=== PATIENT | male | born 1940 | race Caucasian/White ===

== ENCOUNTER → 2019-07-28 08:30 | Outpatient (CLI) | payer OTHER, SELFPAY ==
[2019-07-28 09:42] LABS: Add Manual Diff / Slide Review NO; Basophils Absolute Auto 0 /uL (0-100); Basophils Percent Auto 0.6 % (0-2); Eosinophils Absolute Auto 200 /uL (0-450); Eosinophils Percent Auto 4.7 % (2-4); Hematocrit 44.5 % (41-53); Hemoglobin 14.9 g/dL (13.5-17.5); Lymphocytes Absolute Auto 1600 /uL (1100-4500); Lymphocytes Percent Auto 32.7 % (25-40); Mean Corpuscular HGB Conc 33.5 % (30-36); Mean Corpuscular Hemoglobin 30.3 PG (26-34); Mean Corpuscular Volume 90.3 fL (80-100); Monocytes Absolute Auto 400 /uL (0-900); Monocytes Percent Auto 8.5 % (3-14); Neutrophils Absolute Auto 2600 /uL (1500-7000); Neutrophils Percent Auto 53.5 % (50-75); Platelet Count 125 X10^3/uL (150-400); Red Blood Cell Count 4.93 X10^6/uL (4.5-5.9); Red Cell Distribution Width 14.1 % (11.6-14.8); White Blood Cell Count 4.9 X10^3/uL (4.5-11.0)
[2019-07-28 09:52] LABS: Hemoglobin A1C% w Est Avg Glu 5.9 % (4.0-6.0)
[2019-07-28 10:16] LABS: Alanine Aminotransferase 20 IU/L (<50); Albumin 4.2 g/dL (3.5-5.0); Albumin Globulin Ratio 1.7 (1.0-2.8); Alkaline Phosphatase 48 U/L (38-126); Aspartate Aminotransferase 30 IU/L (17-59); BUN Creatinine Ratio 17.1 (6-22); Bilirubin Total 0.6 mg/dL (0.2-1.3); Blood Urea Nitrogen 24 mg/dL (9-20); Calcium 9.3 mg/dL (8.4-10.2); Carbon Dioxide 25 mmol/L (22-32); Chloride 107 mmol/L (98-107); Cholesterol 160 mg/dL (140-199); Estimated Glomerular Filt Rate 49.1 mL/min (>60); Globulin 2.5 g/dL (1.7-4.1); Glucose 94 mg/dL (80-110); HDL Cholesterol 41 mg/dL (40-60); HEMOLYSIS < 15 (0-50); LDL Cholesterol Calculated 90 mg/dL (<100); Potassium 4.9 mmol/L (3.4-5.1); Sodium 142 mmol/L (137-145); Total Protein 6.7 g/dL (6.3-8.2); Triglycerides 144 mg/dL (35-150)
[2019-07-28 10:45] LABS: Prostate Specific Antigen Scrn 1.61 ng/mL (0.1-4.0)
== END ==
PROVIDERS: PCP Family Medicine; Referring Provider Family Medicine; Visit Provider Family Medicine
DX: E78.5 Hyperlipidemia, unspecified (principal); I10 Essential (primary) hypertension; I25.10 Atherosclerotic heart disease of native coronary artery without angina pectoris; I73.9 Peripheral vascular disease, unspecified; E11.9 Type 2 diabetes mellitus without complications; Z12.5 Encounter for screening for malignant neoplasm of prostate
CPT/HCPCS: 36415; 80053; 80061; 83036; 85025; G0103

== ENCOUNTER → 2019-11-20 09:17 | Outpatient (CLI) | payer OTHER, SELFPAY | PROVIDERS: PCP Family Medicine; Visit Provider Nurse Practitioner | DX: N50.9 Disorder of male genital organs, unspecified (principal) | CPT/HCPCS: 87070; 87205 ==

== ENCOUNTER → 2019-12-01 10:11 | Outpatient (CLI) | payer OTHER, SELFPAY ==
[2019-12-01 22:26] LABS: COVID19 Sendout Not Detected (Not Detect)
== END ==
PROVIDERS: PCP Family Medicine; Visit Provider Nurse Practitioner
DX: Z01.812 Encounter for preprocedural laboratory examination (principal)
CPT/HCPCS: 87635

== ENCOUNTER → 2019-12-04 09:11 | Outpatient (CLI) | payer OTHER, SELFPAY ==
--- NOTE | 2019-12-04 | DI.NM.S_ITS ---
PROCEDURE: NM LESLY PERF SPECT REST & STR Rest and exercise myocardial perfusion SPECT with gated imaging and ejection fraction RADIOPHARMACEUTICAL: 13.6 mCi Tc-99m sestamibi IV at rest and 25.8 mCi Tc-99m sestamibi IV at peak exercise. A two day-protocol was performed. INDICATIONS: CAD with prior CABG, worsening angina. TECHNIQUE: Radiopharmaceutical was injected at peak stress test, and also at rest. SPECT images were obtained. SPECT myocardial perfusion images were displayed in short axis, horizontal long axis, and vertical long axis views. Gated images were reviewed using [employer] software. COMPARISON: None. CARDIAC STRESS: A standard Yury treadmill exercise tolerance test was performed by the patient under the supervision of an attending staff. The patient exercised for 5 minutes and 19 seconds; functional aerobic impairment (SEJAL) is +1 %. Hemodynamic data: There is normal blood pressure and heart rate response to exercise stress. Patient achieved 81% of maximum predicted heart rate at peak exercise. Symptoms: Patient developed 3/10 sternal chest pain 3:45 minutes into exercise and peaked at 6/10 with continued exercise and resolved with rest without the use of nitro SL. EKG: No diagnostic EKG changes of ischemia; no ectopy. FINDINGS: Raw data: There is good myocardial labeling by radiotracer. No significant motion artifacts. Qlhx-hg-juyya ratio is 0.38 (normal is less than 0.38 for sestamibi tracer, and less than 0.50 for thallium tracer). Left ventricle function: Gated images show septal motion consistent with post-operative state. No transient ischemic dilation; TID is 0.86 (normal less than 1.3). The left ventricle resting end-diastolic volume is 112 mL. Left ventricle stress ejection fraction is 66%; normal values are above 45%. Myocardial perfusion: There is a very mild distal anterior wall mostly fixed defect that improves but not resolves with prone imaging suggesting prior very small infarction without significant ischemia. There is a fixed inferior wall defect that resolves with prone imaging, suggesting diaphragmatic attenuation without ischemia or infarction. SSS 0. IMPRESSION: Abnormal mildly submaximal nuclear stress test 1) There is a very mild distal anterior wall mostly fixed defect that improves but not resolves with prone imaging suggesting prior very small infarction without significant ischemia. There is a fixed inferior wall defect that resolves with prone imaging, suggesting diaphragmatic attenuation without ischemia or infarction. SSS 0. 2) Normal left ventricular size and systolic function (EF post stress 66%). septal motion consistent with post-operative state. 3) No ECG evidence of ischemia. 4) Patient developed 3/10 sternal chest pain 3:45 minutes into exercise and peaked at 6/10 with continued exercise and resolved with rest without any use of nitro SL. 5) Average exercise tolerance (7.0 METs, SEJAL +1%). Submaximal stress test as only 81% of max predicted heart rate reached and double [place] [address]. Rest BP 124/72mmHg, max BP 180/80mmHg. 6) No prior nuclear stress test available for comparison. Dictated by: Danielito Thakur MD on 12/04/2019 at 16:53 Approved by: Danielito Thakur MD on 12/04/2019 at 17:00
--- NOTE | 2019-12-04 | DI.US.S_ITS ---
PROCEDURE: US CAROTID DOPPLER BI INDICATIONS: ATHEROSCLEROTIC HEART DISEASE/BRUIT RIGHT NECK TECHNIQUE: Color and pulse Doppler interrogation was performed of both carotid systems, with image documentation and velocity measurements. COMPARISON: None. FINDINGS: Stenosis calculations are based on SRU (Society of Radiologists in Ultrasound) criteria. Right side: Brachial blood pressure: Not obtained Common carotid artery peak systolic velocity: 73.7 cm/sec. Internal carotid artery peak systolic velocity: 75.6 cm/sec. Internal carotid artery end diastolic velocity: 22.2 cm/sec. External carotid artery peak systolic velocity: 84.0 cm/sec. ICA/CCA peak systolic ratio: 1.03. Nino scale imaging description: Diffuse atheromatous plaque is present throughout the right internal carotid artery and carotid bifurcation. Percent internal carotid artery stenosis: Less than 50% stenosis. Vertebral artery: Flow direction is antegrade. Left side: Brachial blood pressure: Not obtained Common carotid artery peak systolic velocity: 76.0 cm/sec. Internal carotid artery peak systolic velocity: 140.8 cm/sec. Internal carotid artery end diastolic velocity: 31.2 cm/sec. External carotid artery peak systolic velocity: 119.8 cm/sec. ICA/CCA peak systolic ratio: 1.85. Nino scale imaging description: Atheromatous plaque is present throughout the left internal carotid artery. Some atheromatous calcifications are present as well. Percent internal carotid artery stenosis: 50-69% stenosis. Vertebral artery: Flow direction is antegrade. IMPRESSION: 1. Less than 50% stenosis of the right internal carotid artery. 2. 50-69% stenosis of the left internal carotid artery. Dictated by: Elizabeth Thomas M.D. on 12/04/2019 at 14:14 Approved by: Elizabeth Thomas M.D. on 12/04/2019 at 14:40
--- NOTE | 2019-12-04 15:53 | PM.TREADMILL ---
Cardiac Stress Test Report Referral & Results Date Patient Seen: 12/04/19 Time Patient Seen: 15:54 Requesting provider: Clem Chandler Indication: Atherosclerotic heart disease Rest ECG: Sinus rhythm Procedure Note: Standard Yury protocol, 5:15, 6.2 METS Reduced exercise capacity, SEJAL 1% Normal hemodynamic response to exercise 3/10 chest pain 3:45 mins into exercise and peaked at 6/10 with no ECG changes and suggestive of anginal; relieved with rest. No SL NTG needed No significant ST changes, frequent PVCs Impression: Equivocal stress test with chest pain suggestive of ischemia but no significant ST changes. MIBI images pending. Please note: Actual ECG tracings can be found in the PACS system.
== END ==
PROVIDERS: PCP Family Medicine; Referring Provider Hospitalist; Visit Provider Hospitalist
DX: I25.118 Atherosclerotic heart disease of native coronary artery with other forms of angina pectoris (principal); I65.23 Occlusion and stenosis of bilateral carotid arteries; R94.39 Abnormal result of other cardiovascular function study; R09.89 Other specified symptoms and signs involving the circulatory and respiratory systems; Z95.1 Presence of aortocoronary bypass graft
CPT/HCPCS: 78452; 93017; 93880; A9502

== ENCOUNTER → 2020-04-04 08:35 | Outpatient (CLI) | payer OTHER, SELFPAY ==
[2020-04-04 09:28] LABS: Add Manual Diff / Slide Review NO; Basophils Absolute Auto 0 /uL (0-100); Basophils Percent Auto 0.4 % (0-2); Eosinophils Absolute Auto 200 /uL (0-450); Eosinophils Percent Auto 3.6 % (2-4); Hematocrit 44.9 % (41-53); Hemoglobin 14.9 g/dL (13.5-17.5); Lymphocytes Absolute Auto 1900 /uL (1100-4500); Lymphocytes Percent Auto 30.2 % (25-40); Mean Corpuscular HGB Conc 33.1 % (30-36); Mean Corpuscular Hemoglobin 30.2 PG (26-34); Mean Corpuscular Volume 91.2 fL (80-100); Monocytes Absolute Auto 600 /uL (0-900); Neutrophils Absolute Auto 3500 /uL (1500-7000); Neutrophils Percent Auto 55.8 % (50-75); Platelet Count 126 X10^3/uL (150-400); Red Blood Cell Count 4.93 X10^6/uL (4.5-5.9); Red Cell Distribution Width 13.8 % (11.6-14.8); White Blood Cell Count 6.2 X10^3/uL (4.5-11.0)
[2020-04-04 10:20] LABS: Alanine Aminotransferase 22 IU/L (<50); Albumin 4.4 g/dL (3.5-5.0); Albumin Globulin Ratio 1.8 (1.0-2.8); Alkaline Phosphatase 47 U/L (38-126); Aspartate Aminotransferase 31 IU/L (17-59); BUN Creatinine Ratio 17.4 (6-22); Blood Urea Nitrogen 23 mg/dL (9-20); Calcium 9.4 mg/dL (8.4-10.2); Carbon Dioxide 30 mmol/L (22-32); Chloride 106 mmol/L (98-107); Cholesterol 157 mg/dL (140-199); Estimated Glomerular Filt Rate 52.5 mL/min (>60); Globulin 2.4 g/dL (1.7-4.1); Glucose 103 mg/dL (80-110); HDL Cholesterol 49 mg/dL (40-60); HEMOLYSIS < 15 (0-50); LDL Cholesterol Calculated 65 mg/dL (<100); Sodium 140 mmol/L (137-145); Total Protein 6.8 g/dL (6.3-8.2); Triglycerides 214 mg/dL (35-150)
[2020-04-04 10:52] LABS: Prostate Specific Antigen Scrn 1.47 ng/mL (0.1-4.0)
== END ==
PROVIDERS: PCP Family Medicine; Referring Provider Family Medicine; Visit Provider Family Medicine
DX: E11.9 Type 2 diabetes mellitus without complications (principal); I10 Essential (primary) hypertension; I25.10 Atherosclerotic heart disease of native coronary artery without angina pectoris; I73.9 Peripheral vascular disease, unspecified; Z12.5 Encounter for screening for malignant neoplasm of prostate
CPT/HCPCS: 36415; 80053; 80061; 83036; 85025; G0103

== ENCOUNTER → 2020-11-30 08:29 | Outpatient (CLI) | payer OTHER, SELFPAY ==
[2020-11-30 10:01] LABS: Add Manual Diff / Slide Review NO; Basophils Absolute Auto 0 /uL (0-100); Basophils Percent Auto 0.5 % (0-2); Eosinophils Absolute Auto 300 /uL (0-450); Eosinophils Percent Auto 4.7 % (2-4); Hematocrit 45.8 % (41-53); Hemoglobin 14.9 g/dL (13.5-17.5); Lymphocytes Absolute Auto 1600 /uL (1100-4500); Lymphocytes Percent Auto 30.3 % (25-40); Mean Corpuscular HGB Conc 32.6 % (30-36); Mean Corpuscular Hemoglobin 30.1 PG (26-34); Mean Corpuscular Volume 92.4 fL (80-100); Monocytes Absolute Auto 600 /uL (0-900); Monocytes Percent Auto 11.3 % (3-14); Neutrophils Absolute Auto 2900 /uL (1500-7000); Neutrophils Percent Auto 53.2 % (50-75); Platelet Count 127 X10^3/uL (150-400); Red Blood Cell Count 4.96 X10^6/uL (4.5-5.9); Red Cell Distribution Width 14.4 % (11.6-14.8); White Blood Cell Count 5.4 X10^3/uL (4.5-11.0)
[2020-11-30 10:16] LABS: Alanine Aminotransferase 19 IU/L (<50); Albumin 4.4 g/dL (3.5-5.0); Albumin Globulin Ratio 1.6 (1.0-2.8); Alkaline Phosphatase 40 U/L (38-126); Aspartate Aminotransferase 31 IU/L (17-59); BUN Creatinine Ratio 20.9 (6-22); Bilirubin Total 0.6 mg/dL (0.2-1.3); Blood Urea Nitrogen 31 mg/dL (9-20); Calcium 9.8 mg/dL (8.4-10.2); Carbon Dioxide 26 mmol/L (22-32); Chloride 110 mmol/L (98-107); Cholesterol 214 mg/dL (140-199); Estimated Glomerular Filt Rate 45.8 mL/min (>60); Globulin 2.8 g/dL (1.7-4.1); Glucose 105 mg/dL (80-110); HDL Cholesterol 49 mg/dL (40-60); HEMOLYSIS 23 (0-50); LDL Cholesterol Calculated 142 mg/dL (<100); Potassium 5.3 mmol/L (3.4-5.1); Sodium 144 mmol/L (137-145); Total Protein 7.2 g/dL (6.3-8.2); Triglycerides 117 mg/dL (35-150)
[2020-11-30 10:20] LABS: Hemoglobin A1C% w Est Avg Glu 5.9 % (4.0-6.0)
== END ==
PROVIDERS: PCP Family Medicine; Referring Provider Family Medicine; Visit Provider Family Medicine
DX: I10 Essential (primary) hypertension (principal); E11.9 Type 2 diabetes mellitus without complications; I25.10 Atherosclerotic heart disease of native coronary artery without angina pectoris; Z95.1 Presence of aortocoronary bypass graft
CPT/HCPCS: 36415; 80053; 80061; 83036; 85025

== ENCOUNTER → 2021-02-10 09:02 | Outpatient (CLI) | payer OTHER, SELFPAY ==
[2021-02-10 10:34] LABS: Alanine Aminotransferase 21 IU/L (<50); Albumin 4.3 g/dL (3.5-5.0); Albumin Globulin Ratio 1.6 (1.0-2.8); Alkaline Phosphatase 44 U/L (38-126); Aspartate Aminotransferase 36 IU/L (17-59); BUN Creatinine Ratio 17.4 (6-22); Blood Urea Nitrogen 23 mg/dL (9-20); Calcium 9.1 mg/dL (8.4-10.2); Carbon Dioxide 24 mmol/L (22-32); Chloride 107 mmol/L (98-107); Cholesterol 164 mg/dL (140-199); Estimated Glomerular Filt Rate 52.3 mL/min (>60); Globulin 2.7 g/dL (1.7-4.1); Glucose 98 mg/dL (80-110); HDL Cholesterol 51 mg/dL (40-60); HEMOLYSIS 40 (0-50); INR 1.1 (0.9-1.3); LDL Cholesterol Calculated 87 mg/dL (<100); Potassium 4.7 mmol/L (3.4-5.1); Sodium 139 mmol/L (137-145); Triglycerides 131 mg/dL (35-150)
[2021-02-10 10:39] LABS: Add Manual Diff / Slide Review NO; Basophils Absolute Auto 0 /uL (0-100); Basophils Percent Auto 0.5 % (0-2); Eosinophils Absolute Auto 200 /uL (0-450); Eosinophils Percent Auto 3.9 % (2-4); Hematocrit 44.8 % (41-53); Hemoglobin 14.9 g/dL (13.5-17.5); Lymphocytes Absolute Auto 1500 /uL (1100-4500); Lymphocytes Percent Auto 29.6 % (25-40); Mean Corpuscular HGB Conc 33.2 % (30-36); Mean Corpuscular Hemoglobin 30.1 PG (26-34); Mean Corpuscular Volume 90.8 fL (80-100); Monocytes Absolute Auto 500 /uL (0-900); Monocytes Percent Auto 10.3 % (3-14); Neutrophils Absolute Auto 2800 /uL (1500-7000); Neutrophils Percent Auto 55.7 % (50-75); Platelet Count 106 X10^3/uL (150-400); Red Blood Cell Count 4.94 X10^6/uL (4.5-5.9); Red Cell Distribution Width 13.7 % (11.6-14.8)
[2021-02-10 10:43] LABS: Hemoglobin A1C% w Est Avg Glu 5.5 % (4.0-6.0)
[2021-02-10 11:03] LABS: TSH w/ Reflex to FT4 2.09 uIU/mL (0.47-4.68)
== END ==
PROVIDERS: PCP Family Medicine; Referring Provider Internal Medicine Cardiovascular Disease; Visit Provider Internal Medicine Cardiovascular Disease
DX: I10 Essential (primary) hypertension (principal); I25.118 Atherosclerotic heart disease of native coronary artery with other forms of angina pectoris; E11.9 Type 2 diabetes mellitus without complications; E78.5 Hyperlipidemia, unspecified; R00.1 Bradycardia, unspecified
CPT/HCPCS: 36415; 80053; 80061; 83036; 84443; 85025; 85610

== ENCOUNTER → 2021-05-07 14:36 | Outpatient (CLI) | payer OTHER, SELFPAY | PROVIDERS: PCP Family Medicine; Referring Provider Internal Medicine Cardiovascular Disease; Visit Provider Internal Medicine Cardiovascular Disease | DX: I65.23 Occlusion and stenosis of bilateral carotid arteries (principal); Z53.8 Procedure and treatment not carried out for other reasons ==

== ENCOUNTER → 2021-05-19 15:33 | Outpatient (CLI) | payer OTHER, SELFPAY ==
--- NOTE | 2021-05-19 | DI.US.S_ITS ---
PROCEDURE: US CAROTID DOPPLER BI INDICATIONS: OCCLUSION AND STENOSIS BILATERAL CAROTID ARTERIES TECHNIQUE: Color and pulse Doppler interrogation was performed of both carotid systems, with image documentation and velocity measurements. COMPARISON: [facility], , CAROTID DOPPLER BI, 12/04/2019, 11:02. FINDINGS: Stenosis calculations are based on SRU (Society of Radiologists in Ultrasound) criteria. Right side: Brachial blood pressure: 135/68 mm Hg. Common carotid artery peak systolic velocity: 128 cm/sec. Internal carotid artery peak systolic velocity: 148 cm/sec. Internal carotid artery end diastolic velocity: 32 cm/sec. External carotid artery peak systolic velocity: Not well visualized cm/sec. ICA/CCA peak systolic ratio: 1.2 . Nino scale imaging description: Diffuse atherosclerotic plaque Percent internal carotid artery stenosis: Moderate . Vertebral artery: Flow direction is antegrade. Left side: Brachial blood pressure: 141/72 mm Hg. Common carotid artery peak systolic velocity: 99 cm/sec. Internal carotid artery peak systolic velocity: 126 cm/sec. Internal carotid artery end diastolic velocity: 22 cm/sec. External carotid artery peak systolic velocity: 180 cm/sec. ICA/CCA peak systolic ratio: 1.3 . Nino scale imaging description: Diffuse atherosclerotic plaque Percent internal carotid artery stenosis: Moderate . Vertebral artery: Retrograde flow noted IMPRESSION: 1. Peak systolic velocities in the proximal internal carotid arteries suggest a 50-69 percent stenosis bilaterally. 2. Elevated velocity in the left external carotid artery also suggests stenosis. 3. Retrograde flow in the left vertebral artery as well as elevated velocity in the left subclavian artery could reflect subclavian steal phenomena. 4. Consider follow-up CT angiogram for further evaluation Approved by: Miguelito Mills M.D. on 05/19/2021 at 16:11
== END ==
PROVIDERS: PCP Family Medicine; Referring Provider Internal Medicine Cardiovascular Disease; Visit Provider Internal Medicine Cardiovascular Disease
DX: I65.23 Occlusion and stenosis of bilateral carotid arteries (principal)
CPT/HCPCS: 93880

== ENCOUNTER → 2021-07-16 08:35 | Outpatient (CLI) | payer OTHER, SELFPAY ==
[2021-07-16 09:51] LABS: BUN Creatinine Ratio 18.9 (6-22); Blood Urea Nitrogen 27 mg/dL (9-20); Calcium 9.3 mg/dL (8.4-10.2); Carbon Dioxide 27 mmol/L (22-32); Chloride 110 mmol/L (98-107); Estimated Glomerular Filt Rate 47.7 mL/min (>60); Glucose 103 mg/dL (80-110); HEMOLYSIS < 15 (0-50); Potassium 4.8 mmol/L (3.4-5.1); Sodium 143 mmol/L (137-145)
== END ==
PROVIDERS: PCP Family Medicine; Referring Provider Internal Medicine Cardiovascular Disease; Visit Provider Internal Medicine Cardiovascular Disease
DX: I77.9 Disorder of arteries and arterioles, unspecified (principal)
CPT/HCPCS: 36415; 80048

== ENCOUNTER → 2022-04-09 14:40 | Outpatient (CLI) | payer OTHER, SELFPAY ==
[2022-04-09 17:21] LABS: Add Manual Diff / Slide Review NO; Basophils Absolute Auto 0 /uL (0-100); Basophils Percent Auto 0.3 % (0-2); Eosinophils Absolute Auto 200 /uL (0-450); Eosinophils Percent Auto 2.3 % (2-4); Hematocrit 37.8 % (41-53); Hemoglobin 12.7 g/dL (13.5-17.5); Lymphocytes Absolute Auto 1600 /uL (1100-4500); Lymphocytes Percent Auto 22.8 % (25-40); Mean Corpuscular HGB Conc 33.7 % (30-36); Mean Corpuscular Hemoglobin 30.1 PG (26-34); Mean Corpuscular Volume 89.4 fL (80-100); Monocytes Absolute Auto 700 /uL (0-900); Monocytes Percent Auto 9.9 % (3-14); Neutrophils Absolute Auto 4600 /uL (1500-7000); Neutrophils Percent Auto 64.7 % (50-75); Platelet Count 121 X10^3/uL (150-400); Red Blood Cell Count 4.22 X10^6/uL (4.5-5.9); Red Cell Distribution Width 14.7 % (11.6-14.8); White Blood Cell Count 7.1 X10^3/uL (4.5-11.0)
[2022-04-09 17:53] LABS: Alanine Aminotransferase 33 IU/L (<50); Albumin 4.3 g/dL (3.5-5.0); Albumin Globulin Ratio 1.4 (1.0-2.8); Alkaline Phosphatase 51 U/L (38-126); Aspartate Aminotransferase 35 IU/L (17-59); Bilirubin Total 0.8 mg/dL (0.2-1.3); Blood Urea Nitrogen 32 mg/dL (9-20); Calcium 9.1 mg/dL (8.4-10.2); Carbon Dioxide 24 mmol/L (22-32); Chloride 104 mmol/L (98-107); Cholesterol 151 mg/dL (140-199); Estimated Glomerular Filt Rate 33 mL/min (>60); Glucose 90 mg/dL (80-110); HEMOLYSIS < 15 (0-50); Potassium 4.3 mmol/L (3.4-5.1); Sodium 140 mmol/L (137-145); Total Protein 7.3 g/dL (6.3-8.2)
[2022-04-09 18:32] LABS: Creatinine Urine Random 46.3 mg/dL
[2022-04-09 18:36] LABS: Microalbumi Creatinin Ratio Ur 377.9 ug/mg CR (<30); Microalbumin Urine Random 17.5 mg/dL (0-1.6)
== END ==
PROVIDERS: PCP Family Medicine; Referring Provider Family Medicine; Visit Provider Family Medicine
DX: E11.9 Type 2 diabetes mellitus without complications (principal); N18.31 Chronic kidney disease, stage 3a; I10 Essential (primary) hypertension; I25.10 Atherosclerotic heart disease of native coronary artery without angina pectoris; I73.9 Peripheral vascular disease, unspecified
CPT/HCPCS: 36415; 80053; 82043; 82465; 82570; 83036; 84153; 85025

== ENCOUNTER → 2022-05-04 08:29 | Outpatient (CLI) | payer OTHER, SELFPAY ==
[2022-05-04 10:59] LABS: BUN Creatinine Ratio 15.4 (6-22); Blood Urea Nitrogen 25 mg/dL (9-20); Estimated Glomerular Filt Rate 43 mL/min (>60)
== END ==
PROVIDERS: PCP Family Medicine; Referring Provider Family Medicine; Visit Provider Family Medicine
DX: I70.1 Atherosclerosis of renal artery (principal); N18.31 Chronic kidney disease, stage 3a
CPT/HCPCS: 36415; 82565; 84520

== ENCOUNTER → 2022-06-05 11:57 | Outpatient (CLI) | payer OTHER, SELFPAY ==
[2022-06-05 13:12] LABS: BUN Creatinine Ratio 13.9 (6-22); Blood Urea Nitrogen 20 mg/dL (9-20); Cholesterol 246 mg/dL (140-199); Estimated Glomerular Filt Rate 49 mL/min (>60); HDL Cholesterol 47 mg/dL (40-60); LDL Cholesterol Calculated 158 mg/dL (<100); Triglycerides 206 mg/dL (35-150)
== END ==
PROVIDERS: PCP Family Medicine; Referring Provider Family Medicine; Visit Provider Family Medicine
DX: I10 Essential (primary) hypertension (principal); E11.9 Type 2 diabetes mellitus without complications; I25.10 Atherosclerotic heart disease of native coronary artery without angina pectoris; I73.9 Peripheral vascular disease, unspecified; N18.30 Chronic kidney disease, stage 3 unspecified
CPT/HCPCS: 36415; 80061; 82565; 84520

== ENCOUNTER → 2022-09-10 14:06 | Outpatient (CLI) | payer OTHER, SELFPAY ==
[2022-09-10 15:00] LABS: BUN Creatinine Ratio 17.3 (6-22); Blood Urea Nitrogen 24 mg/dL (9-20); Cholesterol 141 mg/dL (140-199); Estimated Glomerular Filt Rate 51 mL/min (>60); HDL Cholesterol 56 mg/dL (40-60); LDL Cholesterol Calculated 59 mg/dL (<100); Triglycerides 129 mg/dL (35-150)
[2022-09-11 04:46] LABS: Labcorp Hemoglobin (Hb) A1c 5.8 % (4.8-5.6)
== END ==
PROVIDERS: PCP Family Medicine; Referring Provider Family Medicine; Visit Provider Family Medicine
DX: E78.2 Mixed hyperlipidemia (principal); I10 Essential (primary) hypertension; N18.31 Chronic kidney disease, stage 3a
CPT/HCPCS: 36415; 80061; 82565; 83036; 84520

== ENCOUNTER → 2022-09-23 12:06 | Outpatient (CLI) | payer OTHER, SELFPAY ==
--- NOTE | 2022-09-23 | DI.ECHO.S_ITS ---
[place] [facility] +---------+ : : [address] : : : : [id number] : : : : Phone: [phone]+ Echocardiogram Report + + :Name: NAHUN YIP Study Date: 09/23/2022 Height: 65 in : :[facility] ReadingLocation: Weight: 183 lb : : Gender: Male BSA: 1.9 m2 : :: 1940 Age: 81 yrs BP: 135/73 mmHg: :Reason For Study: AORTIC VALVE DISORDER : :Ordering Physician: GLADIS, : :JINNY Pittman Performed By: Rosalia Younger : :Referring: JINNY WONG : + + Interpretation Summary The ejection fraction is estimated to be 55-60%. Diastolic function could not be accurately assessed due to contradictory data. There is apical inferior wall mild hypokinesis. The left atrium is mildly dilated. The right ventricle is normal in size and function. There is mild mitral regurgitation. There is a well-seated, normal functioning bioprosthetic aortic valve. There is mild to moderate tricuspid regurgitation. The right ventricular systolic pressure is estimated to be at least 29 mmHg based on an estimated right atrial pressure of 3 mm Hg. Compared to the prior study dated 04/21/2021, there is a slight increase in tricuspid regurgitation. Procedure: A two-dimensional transthoracic echocardiogram with color flow and Doppler was performed. The study quality was technically adequate. There is no prior echocardiogram noted for this patient. The patient was in sinus bradycardia with heart rates between 52-61 bpm during the exam. Left Ventricle: The left ventricle is normal in size and wall thickness. The ejection fraction is estimated to be 55-60%. There is apical inferior wall mild hypokinesis. Diastolic function could not be accurately assessed due to contradictory data. Right Ventricle: The right ventricle is normal in size and function. Atria: The left atrium is mildly dilated. Right atrial size is normal. There is no Doppler evidence for an interatrial shunt. Mitral Valve: There is mild mitral annular calcification. The mitral valve leaflets appear borderline thickened, but open well. There is mild mitral regurgitation. Aortic Valve: There is a bioprosthetic aortic valve. There is no aortic valve stenosis. The aortic valve mean gradient is 6.4 mmHg. The peak aortic velocity is 1.7 m/sec. No aortic regurgitation is present. Tricuspid Valve: The tricuspid valve is normal in structure and function. There is mild to moderate tricuspid regurgitation. The right ventricular systolic pressure is estimated to be at least 29 mmHg based on an estimated right atrial pressure of 3 mm Hg. Pulmonic Valve: The pulmonic valve leaflets are thin and pliable; valve motion is normal. There is mild to moderate pulmonic regurgitation. Great Vessels: The aortic root is not well visualized but is probably normal size. The dimensions of the ascending aorta are normal. The IVC is of normal diameter and collapses greater than 50% with a sniff. This suggests a low right atrial pressure of 3 mm Hg. Pericardium/ Pleura There is no pericardial effusion. There is no pleural effusion. MMode/2D Measurements & Calculations LVIDd: 5.5 cm LVOT diam: 2.1 cm LVIDs: 3.7 cm asc Aorta Diam: 3.6 cm FS: 33.3 % EPSS: 0.55 cm IVSd: 0.70 cm LVPWd: 0.85 cm LV leon. diameter/BSA (cm/m^2): 2.9 LV sys. diameter/BSA (cm/m^2): 1.9 LA A2 area: 25.2 cm2 RA long axis: 6.0 cm LA A4 area: 20.8 cm2 RA area: 20.6 cm2 LA length (vol): 5.9 cm RA vol: 59.9 ml LA vol: 75.4 ml RA : 31.5 ml/m2 LA vol index: 39.6 ml/m2 IVC diam: 1.7 cm RVD1 (basal): 3.8 cm RVD2 (mid): 3.4 cm TAPSE: 1.4 cm Doppler Measurements & Calculations Ao V2 max: 168.1 cm/sec LVOT Max Ricardo: 80.6 cm/sec Ao V2 mean: 120.6 cm/sec LV V1 max P.6 mmHg Ao max P.3 mmHg LV V1 VTI: 22.1 cm Ao mean P.4 mmHg CHARLY(I,D): 1.8 cm2 Ao V2 VTI: 41.5 cm CHARLY(V,D): 1.7 cm2 sev ratio: 0.53 CHARLY indexed to BSA (cm^2/m^2): 0.96 MV E max ricardo: 85.6 cm/sec TR max ricardo: 252.4 cm/sec MV A max ricardo: 62.0 cm/sec TR max P.5 mmHg MV E/A: 1.4 PA V2 max: 92.1 cm/sec Med Peak E' Ricardo: 6.8 cm/sec PA V2 mean: 60.0 cm/sec E/E' med: 12.5 PA mean P.7 mmHg Lat Peak E' Ricardo: 9.3 cm/sec PA pr(Accel): 36.2 mmHg E/E' lat: 9.2 E/e' average: 10.9 MV dec time: 0.20 sec SV(LVOT): 76.1 ml Reading Physician:05:41 PM
== END ==
PROVIDERS: PCP Family Medicine; Referring Provider Internal Medicine Cardiovascular Disease; Visit Provider Internal Medicine Cardiovascular Disease
DX: I08.1 Rheumatic disorders of both mitral and tricuspid valves (principal)
CPT/HCPCS: 93306

== ENCOUNTER → 2022-12-05 12:06 | Outpatient (CLI) | payer OTHER, SELFPAY ==
--- NOTE | 2022-12-05 12:09 | DI.RAD.S_ITS ---
PROCEDURE: XR HIP W PEL IF DONE LT 2V INDICATIONS: left lateral hip pain TECHNIQUE: AP pelvis with lateral view(s) of the left hip(s). COMPARISON: [facility], , [id number] W PEL IF PERFORMED, 08/06/2016, 12:20. FINDINGS: Bones: No fractures or dislocations. Pelvic ring appears intact. No suspicious bony lesions. Degenerative changes of both hips. The left hip has complete loss of the joint space with subchondral sclerosis and subchondral cystic changes. Soft tissues: The visualized bowel gas pattern is normal. Vasculature has atherosclerotic calcifications. No suspicious soft tissue calcifications. IMPRESSION: 1. Severe degenerative changes of the left hip consistent with severe osteoarthritis. 2. Moderate degenerative changes of the right hip consistent with osteoarthritis. Dictated by: Ignacio Gibbs M.D. on 12/05/2022 at 21:54 Approved by: Ignacio Gibbs M.D. on 12/05/2022 at 21:56
== END ==
PROVIDERS: PCP Family Medicine; Referring Provider Physician Assistant; Visit Provider Physician Assistant
DX: M25.552 Pain in left hip (principal)
CPT/HCPCS: 73502

== ENCOUNTER → 2023-02-17 09:49 | Outpatient (CLI) | payer OTHER, SELFPAY ==
--- NOTE | 2023-02-17 | DI.NM.S_ITS ---
PROCEDURE: NM LESLY PERF SPECT R&S PHARM Rest and pharmacological stress myocardial perfusion SPECT with gated imaging and ejection fraction RADIOPHARMACEUTICAL: 26.7 mCi Tc-99m tetrafosmin IV at rest and 26.0 mCi Tc-99m tetrafosmin IV at peak effect of pharmacological stress. [id number] was performed. INDICATIONS: Atherosclerotic heart disease of nez perce coronary artery with TECHNIQUE: Radiopharmaceutical was injected at peak stress test, and also at rest. SPECT images were obtained. SPECT myocardial perfusion images were displayed in short axis, horizontal long axis, and vertical long axis views. Gated images were reviewed using [employer] software. COMPARISON: None. CARDIAC STRESS: A pharmacologic stress test was performed under the supervision of an attending staff, using an infusion of regadenoson 0.4 mg IV. Hemodynamic data: There is normal blood pressure and heart rate response to pharmacologic stress. Symptoms: The patient denied anginal chest pain. EKG: No diagnostic changes of ischemia; no ectopy. FINDINGS: Raw data: There is good myocardial uptake of radiotracer. No significant motion artifacts. Kpjb-vw-hhhba ratio is 0.59 (normal is less than 0.38 for tetrafosmin tracer). Left ventricle function: Gated images demonstrate normal left ventricular wall thickening. No segmental wall motion abnormalities. No transient ischemic dilation; TID is 1.08 (normal less than 1.3). Left ventricle resting end diastolic volume is 108 mL. Left ventricle stress ejection fraction is 63%; normal range is above 45%. Myocardial perfusion: There is normal distribution of activity in the right and left ventricular myocardium. No fixed or reversible perfusion defects. IMPRESSION: Low risk study. No evidence of pharmacologic induced ischemia or scar. Normal LV size and function. Dictated by: Jinny Wong D.O. on 02/19/2023 at 16:19 Approved by: Jinny Wong D.O. on 02/19/2023 at 16:21
== END ==
PROVIDERS: PCP Family Medicine; Referring Provider Internal Medicine Cardiovascular Disease; Visit Provider Internal Medicine Cardiovascular Disease
DX: I25.10 Atherosclerotic heart disease of native coronary artery without angina pectoris (principal)
CPT/HCPCS: 78452; 93017; A9502; J2785

== ENCOUNTER → 2023-03-17 13:43 | Outpatient (CLI) | payer OTHER, SELFPAY ==
[2023-03-17 14:33] LABS: Add Manual Diff / Slide Review NO; Basophils Absolute Auto 0 /uL (0-100); Basophils Percent Auto 0.5 % (0-2); Eosinophils Absolute Auto 200 /uL (0-450); Eosinophils Percent Auto 3.4 % (2-4); Hematocrit 43.6 % (41-53); Hemoglobin 14.9 g/dL (13.5-17.5); Lymphocytes Absolute Auto 1600 /uL (1100-4500); Lymphocytes Percent Auto 27.5 % (25-40); Mean Corpuscular HGB Conc 34.2 % (30-36); Mean Corpuscular Hemoglobin 31.4 PG (26-34); Mean Corpuscular Volume 91.8 fL (80-100); Monocytes Absolute Auto 500 /uL (0-900); Monocytes Percent Auto 9.3 % (3-14); Neutrophils Absolute Auto 3400 /uL (1500-7000); Neutrophils Percent Auto 59.3 % (50-75); Platelet Count 115 X10^3/uL (150-400); Red Blood Cell Count 4.75 X10^6/uL (4.5-5.9); Red Cell Distribution Width 14.1 % (11.6-14.8); White Blood Cell Count 5.8 X10^3/uL (4.5-11.0)
[2023-03-17 15:06] LABS: Hemoglobin A1C% w Est Avg Glu 5.6 % (4.0-6.0)
[2023-03-17 15:12] LABS: Alanine Aminotransferase 15 IU/L (<50); Albumin 4.1 g/dL (3.5-5.0); Albumin Globulin Ratio 1.7 (1.0-2.8); Alkaline Phosphatase 56 U/L (38-126); Aspartate Aminotransferase 25 IU/L (17-59); BUN Creatinine Ratio 14.9 (6-22); Bilirubin Total 0.7 mg/dL (0.2-1.3); Blood Urea Nitrogen 21 mg/dL (9-20); Calcium 8.7 mg/dL (8.4-10.2); Carbon Dioxide 26 mmol/L (22-32); Chloride 106 mmol/L (98-107); Cholesterol 124 mg/dL (140-199); Estimated Glomerular Filt Rate 50 mL/min (>60); Globulin 2.4 g/dL (1.7-4.1); Glucose 97 mg/dL (80-110); HDL Cholesterol 48 mg/dL (40-60); HEMOLYSIS < 15 (0-50); LDL Cholesterol Calculated 47 mg/dL (<100); Potassium 4.3 mmol/L (3.4-5.1); Sodium 140 mmol/L (137-145); Total Protein 6.5 g/dL (6.3-8.2); Triglycerides 144 mg/dL (35-150)
== END ==
PROVIDERS: PCP Family Medicine; Referring Provider Family Medicine; Visit Provider Family Medicine
DX: E78.2 Mixed hyperlipidemia (principal); E11.9 Type 2 diabetes mellitus without complications; I70.1 Atherosclerosis of renal artery; N18.30 Chronic kidney disease, stage 3 unspecified; I10 Essential (primary) hypertension
CPT/HCPCS: 36415; 80053; 80061; 83036; 85025

== ENCOUNTER 2023-05-13 13:35 | Day surgery (SDC) | payer OTHER, SELFPAY ==
[2023-05-03 08:06] VITALS: BMI 30.7
[2023-05-13] VITALS (10 sets, daily range): BP systolic 102–179; BP diastolic 57–87; PULSE 50–70; RESP 11–18; TEMP 35.6–36.3; O2SAT 93–98; BMI 30.7
--- NOTE | 2023-05-13 06:00 | DI.RAD.S_ITS ---
PROCEDURE: XR HIP W PEL IF DONE LT 2V INDICATIONS: ANTERIOR LEFT HIP TECHNIQUE: 8 intraoperative fluoroscopic views of the hip were acquired. COMPARISON: [facility], , XR HIP W PEL IF DONE LT 2V, 12/05/2022, 12:08. FINDINGS: Intraoperative fluoroscopic images of the left hip demonstrate interval left total hip arthroplasty with normal postoperative alignment. No gross hardware complication seen. IMPRESSION: Intraoperative fluoroscopic support for left total hip arthroplasty. Please see separate procedure note for further details. Dictated by: Eliseo Peralta M.D. on 05/13/2023 at 20:33 Approved by: Eliseo Peralta M.D. on 05/13/2023 at 20:34
[2023-05-13] MEDS: VANCOMYCIN 1,000 MG/200 ML PIGGYBACK 200 MG IV (14:10)
--- NOTE | 2023-05-13 14:18 | PM.PREOP ---
Pre-operative Note Interval Note History & Physical reviewed/Exam performed by Physician: Yes Changes to H&P: No
--- NOTE | 2023-05-13 14:18 | PM.PREOP ---
Pre-operative Note Interval Note History & Physical reviewed/Exam performed by Physician: Yes Changes to H&P: No
--- NOTE | 2023-05-13 14:19 | PM.OP.1 ---
Operative Date/Time/Diagnoses Date of procedure: 05/13/23 Time of procedure: 14:30 Pre-op diagnosis: Severe left hip OA Post-op diagnosis: same Procedure & Clinicians Procedure: Left total hip arthroplasty anterior approach Same procedure as scheduled: Yes Indications: The patient has had progressively worsening left hip pain with radiographic changes consistent with arthritis. Non-operative management has failed and the patient has requested total hip replacement. The risks, benefits and alternatives to surgery were discussed with the patient prior to proceeding. Risks discussed included, but were not limited to, failure to relieve pain, leg length discrepancy, dislocation, stiffness, infection, nerve damage, deep venous thrombosis, pulmonary embolism, stroke, coma, heart attack, permanent paralysis and , as well as the potential need for eventual revision of the prosthetic. Surgeon: Sujata Carvajal [employer] Officer: Iram Mcnair Anesthesia Type: General and Spinal Operative Notes Findings: Severe left hip OA, adequate stability, minimal bleeding Closure Type: primary Specimen(s): none sent Prosthetic devices, grafts, tissues, transplants, or devices: Carvajal and nephew size 52 R3 cup, neutral poly liner, one 6.5 mm screw, size 2 standard offset anthology stem, 36 by -3 cobalt chrome head Estimated Blood Loss (mL): 250 Blood products transfused: none Procedure in detail: The patient was brought to the operating room. Patient was carefully positioned in the supine position. Time-out was performed and antibiotics were given. Anesthesia was induced. He was positioned in the on the table in order to allow hyperextension of the hip. The left lower extremity was prepped and draped in a standard sterile fashion. An anterior left hip incision was made 1 fingerbreadth lateral to the anterior superior iliac spine and extended distally towards the greater trochanter. Dissection was carried out through skin and subcutaneous tissues. Superficial hemostasis was achieved. The fascia over the tensor fascia williams was defined and incised with a knife. Two Allis clamps were used to grasp the fascia. Tensor fascia williams was retracted laterally. A gelpi retractor was placed. Dissection was carried out down along the neck. The circumflex vessels were carefully identified and cauterized with the Aqua Mantis. A PA was used during the procedure and was essential for intraoperative retraction and safe implantation of the components. There was good visualization of the femoral neck. A Cobra was placed superior to the neck and the gluteus fibers were carefully stripped from that superior aspect of the capsule. A 2nd retractor was placed along the inferior aspect of the neck. The rectus insertion along the capsule was partially released. A 3rd retractor that was then gently placed over the rim of the acetabulum under the rectus. Capsule was carefully incised and released from the intertrochanteric line circumferentially superior to the mid sagittal line and inferiorly to the mid sagittal line until the lesser trochanter was palpable. A tag stitch was placed both in the superior and inferior limb of the capsular insertion. Along the acetabulum capsule was also released up to the mid sagittal 12:00 position. A portion of the labrum was resected. A saw was used to perform an osteotomy at the level of the intertrochanteric line and the junction of the superior femoral neck leaving approximately 1 finger breath of residual inferior neck above the lesser trochanter. A 2nd cut was made along the femoral neck at the base of the head and a napkin ring of neck was removed. Corkscrew was placed in the femoral head and the head was removed without difficulty. Retractors were then repositioned around the acetabulum. Residual labrum was resected and additional osteophytes were removed. A reamer that was 4 mm below the templated size was placed by hand in the acetabulum and it was reamed to centralize the acetabulum. It was then reamed up to 2 under the templated size and fluoroscopy was brought in to confirm the position of the reaming and depth of reaming. I reamed 1 under the anticipated size. A trial cup was placed and noted that it was appropriately sized and fluoroscopy confirmed position and depth. The component was open and inserted without difficulty fluoroscopic imaging was used to confirm that the cup had been adequately seated and was well positioned. It was further stabilized with a single screw. Neutral poly liner was placed. The cup was tested and noted to be stable. Attention was then directed to the femur. The femur was gently hyperextended additional capsular release was performed as needed in order to allow adequate visualization of the proximal femur with elevation of the femur. Patient was placed in a hyperextended slightly adducted position with maximum external rotation. Box osteotome was used to check for any residual neck as well as sclerotic bone along the trochanter. [place] pepper was placed in the femur. Additional broaching was performed. Canal finder was used to determine the alignment of the canal and position. Size 1 broach was placed. He had a very tight canal. It was felt that we could go up to a 2 but there was actually some stability with a size 1. The canal was then appropriately broached up to the templated size as long as there was adequate stability of the broach and serial advancement of the broach without excessive impingement. Specific attention was directed at avoiding varus attempting to direct the distal aspect of the broach more anteriorly and avoiding excessive anteversion. Trial reduction showed acceptable range of motion, good stability, no posterior impingement, oriental orthodox of leg length and appropriate lateral shuck. I also hyperflexed the hip and checked that there was no impingement anteriorly and there was good stability with flexion, adduction and internal rotation. Marcaine and Exparel were injected.. The stem was placed without difficulty. Repeat trial reduction and x-ray showed acceptable overall position, length, and no evidence of the femoral fracture. Final head was placed. Wound was meticulously irrigated with normal saline. The hip was reduced and additional Exparel and Marcaine were injected. The capsule was closed with interrupted nonabsorbable sutures. The fascia of the tensor was closed with interrupted and running Vicryl. No drain was placed. Any tensor fascia williams muscle that appeared to be contused or injured which was a minimal amount was carefully resected. Capsule around the tensor was injected with Exparel and Marcaine. The skin was closed with barbed stitches for the subcutaneous tissue and skin. We also used surgical glue. The wound was dressed sterilely. Brief Betadine soak was also used and was meticulously irrigated with normal saline. Patient was transferred to recovery room in satisfactory condition. Complications: none Post-operative Condition: stable Disposition: Acute Care Plan for aftercare: The patient will be maintained on a standard total hip replacement protocol with weight bearing as tolerated and anterior hip precautions. The patient will receive Aspirin and sequential compression devices for DVT prophylaxis. The patient will be discharged home when safe for the home environment.
[2023-05-13 14:23] LABS: Hematocrit 47.4 % (41-53); Hemoglobin 16.1 g/dL (13.5-17.5); Mean Corpuscular Hemoglobin 31.6 PG (26-34); Mean Corpuscular Volume 92.8 fL (80-100); Platelet Count 110 X10^3/uL (150-400); Red Blood Cell Count 5.11 X10^6/uL (4.5-5.9); Red Cell Distribution Width 13.8 % (11.6-14.8); White Blood Cell Count 6.3 X10^3/uL (4.5-11.0)
[2023-05-13] MEDS: ACETAMINOPHEN 325 MG TABLET 975 MG PO (14:32)
[2023-05-13] MEDS: CELECOXIB 200 MG CAPSULE PO (14:34)
--- NOTE | 2023-05-13 14:39 | SUR.PREOP ---
1410 - CBC DRAWN AND SENT TO LAB
[2023-05-13] MEDS: TRANEXAMIC ACID 1,000 MG VIAL 1000 MG INJ ×2 (14:44→17:03)
[2023-05-13] MEDS: CEFAZOLIN 2 GM/100 ML PREMIX 100 ML IV ×2 (14:44→22:28)
--- NOTE | 2023-05-13 15:11 | SUR.OPER ---
Patient supine on padded [place] table, one arm on padded arm board at <90, other arm padded and secured with tape across patient's chest, both legs secured in padded traction boots and positioned per surgeon, padded post at patient's groin, pressure points checked and padded.
[2023-05-13] MEDS: BUPIVACAINE 0.25% (PF) 60 ML, EPINEPHrine 0.3 MG INJ (15:17)
[2023-05-13] MEDS: BUPIVACAINE LIPOSOME 266 MG/20 ML VIAL INJ (15:18)
[2023-05-13] MEDS: LACTATED RINGERS 1,000 ML 42 ML IV (16:25)
--- NOTE | 2023-05-13 17:45 | DI.RAD.S_ITS ---
PROCEDURE: XR HIP W PEL IF DONE LT 2V INDICATIONS: ANTERIOR LEFT HIP TECHNIQUE: AP pelvis and lateral view of the left hip acquired. COMPARISON: [facility], MARY, XR HIP W PEL IF DONE LT 2V, 05/13/2023, 15:52. [facility], MARY, XR HIP W PEL IF DONE LT 2V, 12/05/2022, 12:08. FINDINGS: Bones: Patient is status post left hip arthroplasty, with hardware components in expected positions. The hip joint appears congruent. The visualized bony structures appear intact. Soft tissues: Overlying postoperative changes are noted. No suspicious soft tissue densities. IMPRESSION: Expected post-operative appearance of a hip arthroplasty. Approved by: Pipe Carvalho M.D. on 05/14/2023 at 13:08
[2023-05-13] MEDS: LACTATED RINGERS 1,000 ML 100 ML IV (18:28)
[2023-05-13] MEDS: ACETAMINOPHEN 325 MG TABLET 650 MG PO (20:48)
[2023-05-13] MEDS: ASPIRIN EC 81 MG TABLET PO (20:48)
[2023-05-13] MEDS: DOCUSATE 100 MG CAPSULE PO (20:49)
[2023-05-13] MEDS: IBUPROFEN 400 MG TABLET PO (20:49)
[2023-05-13] MEDS: METOPROLOL IR 25 MG TABLET 12.5 MG PO (20:49)
[2023-05-13] MEDS: AMLODIPINE 5 MG TABLET PO (20:49)
[2023-05-14] VITALS: BP 128/64; PULSE 51; RESP 16; TEMP 35.8; O2SAT 96
[2023-05-14 04:00] VITALS: BP 121/67; PULSE 61; RESP 16; TEMP 35.9; O2SAT 96
[2023-05-14] MEDS: ACETAMINOPHEN 325 MG TABLET 650 MG PO (04:49)
[2023-05-14] MEDS: LACTATED RINGERS 1,000 ML 100 ML IV (04:50)
[2023-05-14] MEDS: IBUPROFEN 400 MG TABLET PO (04:50)
[2023-05-14 05:05] LABS: Hematocrit 39.4 % (41-53); Hemoglobin 13.5 g/dL (13.5-17.5)
[2023-05-14] MEDS: CEFAZOLIN 2 GM/100 ML PREMIX 100 ML IV (06:52)
--- NOTE | 2023-05-14 07:43 | P.DS_ITS ---
History of Present Illness History of Present Illness Date Patient Seen: 05/14/23 Time Patient Seen: 07:43 Chief complaint: Left SYDNEY Anterior *OPB* Narrative: The patient has had progressively worsening left hip pain with radiographic changes consistent with arthritis. Non-operative management has failed and the patient has requested total hip replacement. This morning is is feeling well. His pain is controlled with oral medications. He denies any numbness or tingling down his left leg. He would like to go home as soon as possible. Discharge Providers Provider Date of admission: 05/13/2023 Discharge Date: 05/14/23 Primary care physician: Mango Aguiar DO Consults: 05/13/23 06:00 Consult to Anesthesiology Routine Comment: Consulting Provider: Anesthesiologist Reason for consultation: Regional block for post operative pain control 05/13/23 18:10 Consult to Discharge Planning Routine Comment: Consult to Occupational Therapy Evaluate & Treat Comment: Physician Instructions: Evaluate and treat Consult to Physical Therapy Evaluate & Treat Comment: Physician Instructions: post op SYDNEY protocol Discharge provider: Brandon Rodríguez PA-C Summary Hospital Course Discharge Diagnosis: Status post Left Hip Arthroplasty Hospital Course: Multimodual pain control and physical therapy. Status at Discharge Cognitive/behavioral status at discharge: oriented Functional status at discharge: uses cane/walker Overall status at discharge: patient is back to baseline Time Spent with Patient Time spent: Less than 30 minutes Exam Vital Signs (past 8 hours): - 05/14/23 00:00 05/14/23 04:00 Temperature 96.5 F L 96.7 F L Pulse Rate 51 L 61 Respiratory Rate 16 16 Blood Pressure 128/64 121/67 Pulse Oximetry 96 96 Oxygen Flow Rate 0 0 Oxygen Delivery Method Room Air Oxygen Flow Rate 0 Narrative Exam Narrative: Dressing is clean and dry. Nontender to palpation along the wound site, posterior thigh and calf. Able to dorisflex and plantarflex at the ankle against resistance. Sensation grossly intact. Objective Labs 05/14/23 04:49 Labs: Laboratory Results - last 24 hr 05/13/23 05/14/23 14:15 04:49 WBC 6.3 RBC 5.11 Hgb 16.1 13.5 Hct 47.4 39.4 L MCV 92.8 MCH 31.6 MCHC 34.0 RDW 13.8 Plt Count 110 L [facility] Medical History (Updated 04/29/23 @ 12:53 by Rebecca Ward RN) Former smoker HLD (hyperlipidemia) KALIE (obstructive sleep apnea) Palpitations PAD (peripheral artery disease) Arthritis of left hip Hyperlipidemia, mixed Lower urinary tract symptoms (LUTS) Bilateral renal artery stenosis Angina of effort Bilateral hand numbness Cervical somatic dysfunction Stiff neck Weight loss counseling, encounter for CKD (chronic kidney disease), stage III Acne (~1954) Inflammation Alcohol use TIA (transient ischemic attack) Gout (~2009) Foot pain (~2009) Rubella Mumps Measles Herpes (~1974) Chicken pox Diabetes Peripheral vascular disease (~2014) Coronary artery disease Surgical History (Updated 05/03/23 @ 10:09 by Rebecca Ward RN) Hx of CABG (2018) Anesthesia History of aortic valve replacement (~05/21/09) History of cataract removal with insertion of prosthetic lens (~2016) Family History Father Aneurysm Mother History of heart disease Mental health problem Depression Alcoholic Sister Liver cancer Grandfather History of heart disease Grandmother History of heart disease Grandmother History of heart disease Stroke Wheelchair bound Social History household members: spouse Smoking Status: Former smoker alcohol intake: current substance use type: does not use Discharge Assessment & Plan Assessment and Plan Assessment: Status post Total left hip replacement Plan of Treatment: Discharge patinet home pending PT evaluation and recommendations. The patient will maintained on a standard total hip replacement protocol with weight bearing as tolerated and anterior hip precautions. Patient already has post-op pain relievers oxycodone 5mg to take every 4 hours as needed for pain. May also take tylenol 500mg every 4 hours and ibuprofen 400mg every 4 hours for pain and inflammation. Start outpatient PT in 7 to 10 days. Follow up with [facility] in 2 weeks for wound check and xrays. Discharge Plan Discharge Plan Patient Disposition: Home Discharge orders & Medications Discharge Orders: Discharge (Order); Ordered 05/14/23 Ordered By: Brandon Rodríguez Prescriptions: Continued losartan 25 mg tablet See Rx Instructions .ROUTE .COMPLEX Qty: 90 1RF Dose Instruction: Take 1 tablet (25 mg) by mouth daily Rx Instructions: Take 1 tablet (25 mg) by mouth daily tamsulosin 0.4 mg capsule 0.4 mg PO DAILY Qty: 90 3RF metoprolol tartrate 25 mg tablet 12.5 mg PO BID nitroglycerin 0.4 mg tablet, sublingual 0.4 mg SL Q5M PRN (Reason: Chest Pain) colchicine 0.6 mg capsule 0.6 mg PO DAILY PRN (Reason: Gout) amlodipine 2.5 mg tablet 2.5 mg PO BID aspirin [Aspir-81] 81 mg Tablet,Delayed Release (Dr/Ec) 81 mg PO DAILY Repatha SureClick 140 mg/mL pen injector 140 mg SUBCUT Q2W amlodipine 5 mg tablet 5 mg PO BID Follow up/Referrals: Mango Aguiar DO [Primary Care Provider] - Diet/Activity/Treatments Diet: Diet as Tolerated Cold/Heat Therapy: Topical ice as needed for pain Skin/Wound/Dressing Care Report to your healthcare provider any signs of infection, such as:: chills, fever, night sweats, increased pain, unusual drainage and unusual redness Dressing: Keep dressing clean and dry, if dressing becomes saturated or dirty okay to remove and replace with clean, dry gauze and call our office. Visit Report/Discharge Packet Instructions: DI for Hip Replacement Stand Alone Forms: Patient Portal/API, Surgery Discharge Discharge Data Primary Care Provider: Mango Aguiar Attending Provider: Sujata Carvajal VTE Deep Vein Thrombosis/Pulmonary Embolism Present on Admission: No
[2023-05-14 08:11] VITALS: BP 138/65; PULSE 60; RESP 18; TEMP 36.2; O2SAT 97
[2023-05-14] MEDS: AMLODIPINE 5 MG TABLET PO (08:37)
[2023-05-14] MEDS: DOCUSATE 100 MG CAPSULE PO (08:37)
[2023-05-14] MEDS: ASPIRIN EC 81 MG TABLET PO (08:37)
[2023-05-14 08:38] VITALS: BP 138/65
[2023-05-14] MEDS: METOPROLOL IR 25 MG TABLET 12.5 MG PO (08:38)
[2023-05-14] MEDS: LOSARTAN 25 MG TABLET PO (08:38)
[2023-05-14] MEDS: TAMSULOSIN 0.4 MG CAPSULE PO (08:39)
--- NOTE | 2023-05-14 09:40 | PT.IIE ---
Current Diagnoses Unilateral primary osteoarthritis, left hip (05/13/23) Surgery Performed Operation Date: 05/13/23 15:15 Actual Procedures p Total Hip Arthroplasty/Anterior Approach(Left) - Sujata Carvajal MD Surgical History (Last Updated 05/03/23 @ 10:09 by Rebecca Ward, RN) Anesthesia History of aortic valve replacement (~05/21/09) History of cataract removal with insertion of prosthetic lens (~2016) Hx of CABG (2019) Medical History (Last Updated 04/29/23 @ 12:53 by Rebecca Ward RN) Acne (~1955) Alcohol use Angina of effort Arthritis of left hip Bilateral hand numbness Bilateral renal artery stenosis Cervical somatic dysfunction Chicken pox CKD (chronic kidney disease), stage III Coronary artery disease Diabetes Foot pain (~2009) Former smoker Gout (~2009) Herpes (~1974) HLD (hyperlipidemia) Hyperlipidemia, mixed Inflammation Lower urinary tract symptoms (LUTS) Measles Mumps KALIE (obstructive sleep apnea) PAD (peripheral artery disease) Palpitations Peripheral vascular disease (~2014) Rubella Stiff neck TIA (transient ischemic attack) Weight loss counseling, encounter for Physical Therapy Inpatient Evaluation/Re-Eval M1 PT/OT-IP Prior Functional Status Start: 05/14/23 13:09 Freq: NEEDED Status: Active Protocol: Document 05/14/23 09:40 AB (Rec: 05/14/23 13:20 AB [email or web address]) Medical Review Prior Functional Status Medical History Reviewed Yes Communication able to make needs known Mobility and Gait pt stated that he was modified independent with all mobilities and ambulation without AD but started using trekking poles on/off in the last month due to hip pain Social History Household Members spouse Living Arrangements House Number of Floors (Floors) One Floor Number of Stairs To Enter/Railing? no steps to enter Home Environment Standard Height Toilet,Walk in Shower Home Equipment Front Wheel Walker,Raised Toilet Seat w/Armrests,Shower Seat with Backrest,Hand Held Shower,Grab Bars In Shower Additional Social History Comment pt stated that spouse has dementia but can assist pt if needed M2 PT-IP Current Condition Start: 05/14/23 13:09 Freq: NEEDED Status: Active Protocol: Document 05/14/23 09:40 AB (Rec: 05/14/23 13:20 AB [email or web address]) Physical Therapy Current Condition Current Condition Evaluation Date 05/14/23 Treatment Diagnosis s/p L SYDNEY anterior approach; difficulty in walking Onset Date 05/13/23 M3 PT-IP Subjective Start: 05/14/23 13:09 Freq: NEEDED Status: Active Protocol: Document 05/14/23 09:40 AB (Rec: 05/14/23 13:20 AB [id number]) Subjective Physical Therapy Visit Type Type Initial Evaluation Visit Start Time 09:40 Visit Stop Time 10:26 Total Visit Minutes 46 Number of FLOWER PLANTER Visits 0 Physical Therapy Visit Comments Patient Comments agreeable to do PT Therapy Pain Assessment Pain When Pain Assessed At Rest Pain Present Pain Present Pain Reported Location Left Knee Intensity 1 Scale Used Numeric (0 - 10) Pain Management Techniques Distraction,Modification of Treatment,Re-positioning, Timing of Activity with Medications M4 PT-IP Mobility and Gait Start: 05/14/23 13:09 Freq: NEEDED Status: Active Protocol: Document 05/14/23 09:40 AB (Rec: 05/14/23 13:20 AB [id number]) PT-Bed Mobility Assessment Supine to Sit Supine to Sit Standby Assistance Sit to Supine Sit to Supine Standby Assistance PT-Transfer Assessment Sit to and From Stand Sit to and from Stand Standby Assistance,1 Person Assistance,Use of Upper Extremities Equipment Transfer Assistive Device Gait Belt,Front Wheeled Walker Orthotic/Prosthetic Devices or Brace: No Transfers Transfer Destination Chair Transfer Technique ambulated Transfer Ability Level of Assist Standby Assistance,Contact Guard Assistance,1 Person Assistance,Use of Upper Extremities Comments Mobility Comments pt supine in bed and agreeable to do PT. BP in supine: 141/ 64 obtained PLOF and home set up. educated pt regarding L anterior hip precautions. pt completed supine to sit SBA . able to sit on EOB SBA. completed sit to stand SBA. ambulated in room ~ 75 ft using FWW initial CGA but able to ambulate SBA after ~ 20 ft . occasional cues for hip precautions. pt sat on the chair. reviewed bed mobility and pt wanting to do bed mobity again. pt ambulated from the chair to the EOB using FWW SBA. completed sit<> supine SBA. pt ambulated back to chair using FWW sBA with occasional cues. positioned pt on the chair. call light and table placed within reach. pt without further concerns. Gait Assessment Gait Gait Assistance Required: Standby Assistance,Contact Guard Assist Distance (Feet) 75 Able to Maintain Weight Bearing Status Yes During Gait Assistive Devices Assistive Device Gait Belt,Front Wheeled Walker Orthotic/Prosthetic Devices or Brace: No Gait Deviations General Gait Pattern Antalgic,Decreased Feet Clearance Factors Limiting Gait Function Factors Limiting Gait Function Decreased Activity Tolerance, Decreased Strength,Pain,Poor Balance,Poor Safety Awareness PT-Balance Assessment Sitting Balance and Reactions Static Sitting Balance Ability Normal Dynamic Sitting Balance Ability Good Standing Balance and Reactions Static Standing Balance Ability Fair Dynamic Standing Balance Ability Fair Device Used FWW M5 PT-IP Objective Assessments Start: 05/14/23 13:09 Freq: NEEDED Status: Active Protocol: Document 05/14/23 09:40 AB (Rec: 05/14/23 13:20 AB [email or web address]) Orientation Orientation/Cognition Level of Alertness Alert Orientation Name,Place,Situation Language Function Ability No Deficits Noted Safety Awareness Decreased Safety Awareness Memory Description No Deficits Noted Gross Range of Motion Lower Extremity ROM Assessment Within Functional Limits Strength Lower Extremity Strength Assessment Left Impaired Hip 3+/5 Knee 4-/5 Sensation Assessment Sensation Gross Sensation WNL Muscle Tone Muscle Tone WNL Yes M6 PT-IP Treatment Start: 05/14/23 13:09 Freq: NEEDED Status: Active Protocol: Document 05/14/23 09:40 AB (Rec: 05/14/23 13:20 AB [email or web address]) Physical Therapy Treatment Education Education Provided Precautions,Weight Bearing Status,Post-Op Packet,Safety M7 PT-IP Assessment and Plan Start: 05/14/23 13:09 Freq: NEEDED Status: Active Protocol: Document 05/14/23 09:40 AB (Rec: 05/14/23 13:20 AB [email or web address]) PT Summary Assessment and Plan Potential Rehabilitation Potential Good Status of Condition at Evaluation Stable Summary Impairments Pain,ROM,Strength,Balance, Coordination,Sensation,Tone, Cognition,Bed Mobility, Transfers,Gait,Activity Tolerance Assessment Summary pt is an 82 y/o M s/p L SYDNEY anterior approach. pt is WBAT with L hip anterior precautions. pt requiring SBA to occasional CGA with mobility using FWW. pt is set up for outpt PT. pt may go home when medically stable. Goals Bed Mobility Goal Independent Transfer Goal Independent,Front Wheeled Walker Gait Goal Independent,Front Wheel Walker Gait Distance 300 Days to Meet Goals 5 Frequency of Treatment Frequency Of Treatment Twice a Day Treatment Plan Physical Therapy Treatment Plan Bed Mobility Training,Transfer Training,Gait Training, Therapeutic Exercise,Balance Retraining,Post Op Education, Discharge Planning,Hot or Cold Pack,Neuromuscular Re-ed, Coordination Retraining,Manual Therapy Precautions Anterior Hip Precautions No Hip Extension,No Hip External Rotation Weight Bearing Status Weight Bearing Status Weight Bear as Tolerated Allowed Weight Bearing Amount (enter % LLE WBAT or #) (%) Recommendations To Nursing Amount of Assist Needed Standby Assistance Discharge Recommendations PT Discharge Recommendations Home with Assistance, Outpatient PT Transportation Needs at Discharge Private Vehicle
== END 2023-05-14 11:50 | disposition home or self-care (01) ==
LOC: OR 13:36 → AC 13:36
PROVIDERS: Student in an Organized Health Care Education/Training Program; PCP Family Medicine; Referring Provider Orthopaedic Surgery; Visit Provider Orthopaedic Surgery
PROC: (CPT 27130; principal; 2023-05-13 15:15)
DX: M16.12 Unilateral primary osteoarthritis, left hip (principal); Z95.1 Presence of aortocoronary bypass graft; I10 Essential (primary) hypertension; E11.9 Type 2 diabetes mellitus without complications
CPT/HCPCS: 27130; 36415; 73502; 76000; 85014; 85018; 85027; 97161; 97530; C1776; C9290; J0171; J0690; J2704; J3010

== ENCOUNTER → 2023-07-23 14:21 | Outpatient (CLI) | payer OTHER, SELFPAY ==
[2023-05-13 18:11] VITALS: BMI 30.7
[2023-07-23 14:46] LABS: Add Manual Diff / Slide Review NO; Basophils Absolute Auto 0 /uL (0-100); Basophils Percent Auto 0.5 % (0-2); Eosinophils Absolute Auto 300 /uL (0-450); Hematocrit 37.7 % (41-53); Hemoglobin 12.9 g/dL (13.5-17.5); Lymphocytes Absolute Auto 1400 /uL (1100-4500); Lymphocytes Percent Auto 23.2 % (25-40); Mean Corpuscular HGB Conc 34.1 % (30-36); Mean Corpuscular Hemoglobin 31.4 PG (26-34); Monocytes Absolute Auto 600 /uL (0-900); Monocytes Percent Auto 9.7 % (3-14); Neutrophils Absolute Auto 3800 /uL (1500-7000); Neutrophils Percent Auto 61.6 % (50-75); Platelet Count 155 X10^3/uL (150-400); Red Cell Distribution Width 14.4 % (11.6-14.8); White Blood Cell Count 6.1 X10^3/uL (4.5-11.0)
== END ==
PROVIDERS: PCP Family Medicine; Referring Provider Orthopaedic Surgery; Visit Provider Orthopaedic Surgery
DX: Z96.642 Presence of left artificial hip joint (principal)
CPT/HCPCS: 36415; 85025

== ENCOUNTER → 2023-09-08 10:01 | Outpatient (CLI) | payer OTHER, SELFPAY ==
[2023-05-13 18:11] VITALS: BMI 30.7
[2023-09-08 11:24] LABS: Hemoglobin A1C% w Est Avg Glu 5.3 % (4.0-6.0)
[2023-09-08 11:26] LABS: Add Manual Diff / Slide Review NO; Basophils Absolute Auto 0 /uL (0-100); Basophils Percent Auto 0.3 % (0-2); Eosinophils Absolute Auto 200 /uL (0-450); Eosinophils Percent Auto 3.9 % (2-4); Hematocrit 43.6 % (41-53); Hemoglobin 14.4 g/dL (13.5-17.5); Lymphocytes Absolute Auto 1400 /uL (1100-4500); Lymphocytes Percent Auto 31.2 % (25-40); Mean Corpuscular HGB Conc 33.1 % (30-36); Mean Corpuscular Hemoglobin 30.2 PG (26-34); Mean Corpuscular Volume 91.1 fL (80-100); Monocytes Absolute Auto 500 /uL (0-900); Monocytes Percent Auto 11.3 % (3-14); Neutrophils Absolute Auto 2500 /uL (1500-7000); Neutrophils Percent Auto 53.3 % (50-75); Platelet Count 134 X10^3/uL (150-400); Red Blood Cell Count 4.79 X10^6/uL (4.5-5.9); Red Cell Distribution Width 14.1 % (11.6-14.8); White Blood Cell Count 4.6 X10^3/uL (4.5-11.0)
[2023-09-08 11:50] LABS: Alanine Aminotransferase 11 IU/L (<50); Albumin Globulin Ratio 1.5 (1.0-2.8); Alkaline Phosphatase 63 U/L (38-126); Aspartate Aminotransferase 25 IU/L (17-59); BUN Creatinine Ratio 14.2 (6-22); Bilirubin Total 0.8 mg/dL (0.2-1.3); Blood Urea Nitrogen 20 mg/dL (9-20); Carbon Dioxide 24 mmol/L (22-32); Chloride 109 mmol/L (98-107); Cholesterol 129 mg/dL (140-199); Estimated Glomerular Filt Rate 50 mL/min (>60); Globulin 2.7 g/dL (1.7-4.1); Glucose 95 mg/dL (80-110); HDL Cholesterol 47 mg/dL (40-60); HEMOLYSIS < 15 (0-50); LDL Cholesterol Calculated 62 mg/dL (<100); Magnesium 2.5 mg/dL (1.6-2.3); Potassium 4.6 mmol/L (3.4-5.1); Sodium 140 mmol/L (137-145); Total Protein 6.7 g/dL (6.3-8.2); Triglycerides 100 mg/dL (35-150)
[2023-09-08 12:21] LABS: TSH w/ Reflex to FT4 2.05 uIU/mL (0.47-4.68)
== END ==
LOC: LAB 10:01
PROVIDERS: PCP Family Medicine; Referring Provider Internal Medicine Cardiovascular Disease; Visit Provider Internal Medicine Cardiovascular Disease
DX: R73.03 Prediabetes (principal); I10 Essential (primary) hypertension; E78.5 Hyperlipidemia, unspecified; I25.10 Atherosclerotic heart disease of native coronary artery without angina pectoris
CPT/HCPCS: 36415; 80053; 80061; 83036; 83735; 84443; 85025

== ENCOUNTER → 2024-03-14 09:01 | Outpatient (CLI) | payer OTHER, SELFPAY ==
[2023-05-13 18:11] VITALS: BMI 30.7
[2024-03-14 10:27] LABS: Add Manual Diff / Slide Review NO; Basophils Absolute Auto 0 /uL (0-100); Basophils Percent Auto 0.5 % (0-2); Eosinophils Absolute Auto 200 /uL (0-450); Eosinophils Percent Auto 4.5 % (2-4); Hematocrit 43.3 % (41-53); Hemoglobin 14.6 g/dL (13.5-17.5); Lymphocytes Absolute Auto 1300 /uL (1100-4500); Lymphocytes Percent Auto 27.1 % (25-40); Mean Corpuscular HGB Conc 33.6 % (30-36); Mean Corpuscular Volume 92.1 fL (80-100); Monocytes Absolute Auto 500 /uL (0-900); Monocytes Percent Auto 10.3 % (3-14); Neutrophils Absolute Auto 2700 /uL (1500-7000); Neutrophils Percent Auto 57.6 % (50-75); Platelet Count 135 X10^3/uL (150-400); Red Blood Cell Count 4.71 X10^6/uL (4.5-5.9); Red Cell Distribution Width 14.3 % (11.6-14.8); White Blood Cell Count 4.8 X10^3/uL (4.5-11.0)
[2024-03-14 10:47] LABS: Alanine Aminotransferase 11 IU/L (<50); Albumin Globulin Ratio 1.6 (1.0-2.8); Alkaline Phosphatase 55 U/L (38-126); Aspartate Aminotransferase 25 IU/L (17-59); Bilirubin Total 0.9 mg/dL (0.2-1.3); Blood Urea Nitrogen 24 mg/dL (9-20); Calcium 9.2 mg/dL (8.4-10.2); Carbon Dioxide 27 mmol/L (22-32); Chloride 105 mmol/L (98-107); Cholesterol 119 mg/dL (140-199); Estimated Glomerular Filt Rate 46 mL/min (>60); Globulin 2.5 g/dL (1.7-4.1); Glucose 94 mg/dL (80-110); HDL Cholesterol 49 mg/dL (40-60); HEMOLYSIS < 15 (0-50); LDL Cholesterol Calculated 48 mg/dL (<100); Potassium 4.9 mmol/L (3.4-5.1); Sodium 137 mmol/L (137-145); Total Protein 6.5 g/dL (6.3-8.2); Triglycerides 110 mg/dL (35-150)
[2024-03-14 11:09] LABS: Creatinine Urine Random 61.73 mg/dL
[2024-03-14 12:14] LABS: Hemoglobin A1C% w Est Avg Glu 5.3 % (4.0-6.0)
== END ==
PROVIDERS: PCP Family Medicine; Referring Provider Family Medicine; Visit Provider Family Medicine
DX: E78.2 Mixed hyperlipidemia (principal); E11.9 Type 2 diabetes mellitus without complications; I25.10 Atherosclerotic heart disease of native coronary artery without angina pectoris; N18.30 Chronic kidney disease, stage 3 unspecified; I73.9 Peripheral vascular disease, unspecified; I12.9 Hypertensive chronic kidney disease with stage 1 through stage 4 chronic kidney disease, or unspecified chronic kidney disease
CPT/HCPCS: 36415; 80053; 80061; 82043; 82570; 83036; 85025

== ENCOUNTER → 2024-10-02 08:34 | Outpatient (CLI) | payer OTHER, SELFPAY ==
[2023-05-13 18:11] VITALS: BMI 30.7
[2024-10-02 09:13] LABS: Add Manual Diff / Slide Review NO; Basophils Absolute Auto 0 /uL (0-100); Basophils Percent Auto 0.4 % (0-2); Eosinophils Absolute Auto 200 /uL (0-450); Eosinophils Percent Auto 3.4 % (2-4); Hematocrit 43.8 % (41-53); Hemoglobin 14.7 g/dL (13.5-17.5); Lymphocytes Absolute Auto 1000 /uL (1100-4500); Lymphocytes Percent Auto 18.2 % (25-40); Mean Corpuscular HGB Conc 33.6 % (30-36); Mean Corpuscular Hemoglobin 31.3 PG (26-34); Mean Corpuscular Volume 92.9 fL (80-100); Monocytes Absolute Auto 600 /uL (0-900); Monocytes Percent Auto 11.7 % (3-14); Neutrophils Absolute Auto 3500 /uL (1500-7000); Neutrophils Percent Auto 66.3 % (50-75); Platelet Count 123 X10^3/uL (150-400); Red Blood Cell Count 4.71 X10^6/uL (4.5-5.9); Red Cell Distribution Width 13.5 % (11.6-14.8); White Blood Cell Count 5.3 X10^3/uL (4.5-11.0)
[2024-10-02 09:22] LABS: Hemoglobin A1C% w Est Avg Glu 5.2 % (4.0-6.0)
[2024-10-02 09:49] LABS: Alanine Aminotransferase 14 IU/L (<50); Albumin 4.2 g/dL (3.5-5.0); Albumin Globulin Ratio 2.2 (1.0-2.8); Alkaline Phosphatase 55 U/L (38-126); Aspartate Aminotransferase 24 IU/L (17-59); BUN Creatinine Ratio 14.5 (6-22); Bilirubin Total 0.9 mg/dL (0.2-1.3); Blood Urea Nitrogen 21 mg/dL (9-20); Calcium 8.9 mg/dL (8.4-10.2); Carbon Dioxide 25 mmol/L (22-32); Chloride 109 mmol/L (98-107); Cholesterol 107 mg/dL (140-199); Estimated Glomerular Filt Rate 48 mL/min (>60); Globulin 1.9 g/dL (1.7-4.1); Glucose 109 mg/dL (70-99); HDL Cholesterol 48 mg/dL (40-60); HEMOLYSIS < 15 (0-50); LDL Cholesterol Calculated 42 mg/dL (<100); Potassium 4.7 mmol/L (3.4-5.1); Sodium 141 mmol/L (137-145); Total Protein 6.1 g/dL (6.3-8.2); Triglycerides 87 mg/dL (35-150)
== END ==
PROVIDERS: PCP Family Medicine; Referring Provider Family Medicine; Visit Provider Family Medicine
DX: N18.30 Chronic kidney disease, stage 3 unspecified (principal); E11.9 Type 2 diabetes mellitus without complications; E78.2 Mixed hyperlipidemia
CPT/HCPCS: 36415; 80053; 80061; 83036; 85025

== ENCOUNTER → 2025-04-09 09:05 | Outpatient (CLI) | payer OTHER, SELFPAY ==
[2023-05-13 18:11] VITALS: BMI 30.7
[2025-04-09 10:12] LABS: Add Manual Diff / Slide Review NO; Hematocrit 45.5 % (41-53); Hemoglobin 15.5 g/dL (13.5-17.5); Lymphocytes Absolute Auto 1400 /uL (1100-4500); Mean Corpuscular HGB Conc 34.0 % (30-36); Mean Corpuscular Hemoglobin 31.0 PG (26-34); Mean Corpuscular Volume 91.2 fL (80-100); Platelet Count 122 X10^3/uL (150-400)
[2025-04-09 10:24] LABS: Hemoglobin A1C% w Est Avg Glu 5.5 % (4.0-6.0)
[2025-04-09 10:50] LABS: Alanine Aminotransferase 15 IU/L (<50); Albumin 4.2 g/dL (3.5-5.0); Albumin Globulin Ratio 1.8 (1.0-2.8); Alkaline Phosphatase 56 U/L (38-126); Blood Urea Nitrogen 21 mg/dL (9-20); Calcium 8.9 mg/dL (8.4-10.2); Carbon Dioxide 24 mmol/L (22-32); Chloride 107 mmol/L (98-107); Cholesterol 112 mg/dL (140-199); Estimated Glomerular Filt Rate 50 mL/min (>60); Globulin 2.4 g/dL (1.7-4.1); Glucose 98 mg/dL (70-99); HDL Cholesterol 54 mg/dL (40-60); HEMOLYSIS < 15 (0-50); Potassium 4.4 mmol/L (3.4-5.1); Sodium 142 mmol/L (137-145); Total Protein 6.6 g/dL (6.3-8.2); Triglycerides 118 mg/dL (35-150)
== END ==
PROVIDERS: PCP Family Medicine; Referring Provider Family Medicine; Visit Provider Family Medicine
DX: N18.30 Chronic kidney disease, stage 3 unspecified (principal); E11.9 Type 2 diabetes mellitus without complications; E78.2 Mixed hyperlipidemia
CPT/HCPCS: 36415; 80053; 80061; 83036; 85025